=== PATIENT | female | born 1950 | race Caucasian/White ===

== ENCOUNTER 2018-11-19 08:53 | Day surgery (SDC) | payer OTHER ==
[2018-11-19] MEDS ORDERED: FENTAnyl 50 MCG/ML VIAL (12:02)
[2018-11-19] MEDS ORDERED: MIDAZOLAM 1 MG/ML 2 ML INJ ×2 (12:02)
== END 2018-11-19 12:47 | disposition home or self-care (01) ==
LOC: GIL 08:53
DX: Z12.11 Encounter for screening for malignant neoplasm of colon (principal); K64.8 Other hemorrhoids; K29.60 Other gastritis without bleeding; I10 Essential (primary) hypertension; E78.5 Hyperlipidemia, unspecified; E03.9 Hypothyroidism, unspecified
CPT/HCPCS: 43239; 88305; 88312